=== PATIENT | male | born 1950 | race American Indian/Alaskan Native ===

== ENCOUNTER 2018-11-02 09:22 | Day surgery (SDC) | payer BC ==
[~2018-11-02 09:22] MED LIST: ceFAZolin 2 GM in NACL 0.9% 100 ML IV ONE
[2018-11-02] MEDS ORDERED: VERSED IV NR (11:00)
[2018-11-02] MEDS ORDERED: NEURONTIN PO NR (11:00)
[2018-11-02] MEDS ORDERED: LACTATED RINGERS 1,000 ML IV SCH (11:00)
[2018-11-02] MEDS ORDERED: ANCEF/STERILE WATER 2 GM/20 ML 2 GM/20 ML SYRINGE IV SCH (12:00)
[2018-11-02] MEDS ORDERED: ZEMURON IV ONE (13:59)
[2018-11-02] MEDS ORDERED: SUBLIMAZE ONE ×2 (13:59→16:37)
[2018-11-02] MEDS ORDERED: XYLOCAINE MPF 2% ONE (13:59)
[2018-11-02] MEDS ORDERED: DIPRIVAN 10 MG/ML IV ONE (14:00)
[2018-11-02] MEDS ORDERED: MARCAINE 0.5% INFILTRATI ONE ×2 (14:34→15:48)
[2018-11-02] MEDS ORDERED: XYLOCAINE 1% 20 mL ONE (14:34)
[2018-11-02] MEDS ORDERED: XYLOCAINE 1% 20 mL INFILTRATI ONE (15:48)
[2018-11-02] MEDS ORDERED: NACL 0.9% IR ONE (15:48)
[2018-11-02] MEDS ORDERED: DECADRON ONE (17:37)
[2018-11-02] MEDS ORDERED: ZOFRAN ONE (17:37)
--- NOTE | 2018-11-02 18:10 | Short Stay Summary ---
Short Stay Documentation Date of service: 11/02/18 - History Principal diagnosis: right inguinal hernia H&P: obtained from office - Allergies and Medications Current Medications: Allergies No Known Allergies Allergy (Verified 11/01/18 13:06) Home Medications Medication Instructions Recorded Confirmed Last Taken Type Multivit-Min/Folic/Vit K/Lycop 1 each PO DAILY 11/01/18 11/01/18 11/01/18 09:00 History [One-A-Day Men's 50 Plus Tablet] Triamter/Hctz 37.5-25 mg 1 tab PO QDAY 11/01/18 11/01/18 11/01/18 09:00 History [Maxzide-25] amLODIPine [Norvasc] 10 mg PO DAILY 11/01/18 11/01/18 11/01/18 09:00 History Active Medications Celecoxib (Celebrex) 200 mg PO PREOP NR Stop: 11/02/18 20:00 Last Admin: 11/02/18 13:05 Dose: 200 mg Documented by: Gabapentin (Neurontin) 300 mg PO PREOP NR Stop: 11/02/18 20:00 Last Admin: 11/02/18 13:05 Dose: 300 mg Documented by: Cefazolin Sodium (Ancef/Sterile Water 2 Gm/20 Ml) 2 gm in 20 mls @ 80 mls/hr IV PREOP STEVE Stop: 11/02/18 23:59 Lactated Ringer's (Lactated Ringers) 1,000 mls @ 75 mls/hr IV DIRECT STEVE Last Admin: 11/02/18 12:40 Dose: 75 mls/hr Documented by: Midazolam HCl (Versed) 2 mg IV PREOP NR Stop: 11/02/18 23:59 Last Admin: 11/02/18 13:06 Dose: 2 mg Documented by: - Brief post op/procedure progress note Date of procedure: 11/02/18 Pre-op diagnosis: right inguinal hernia Post-op diagnosis: same Procedure: robotic assisted right inguinal hernia repair with mesh Anesthesia: GETA, local Findings: Large amount of chronic scarring in the right groin, preperitoneal plane. Large direct and indirect hernia Surgeon: MADALYN LOREDO Treating Plant Pumper: ANGIE MCKEON Estimated blood loss: 50-100ml Pathology: none Condition: stable - Hospital course Hospital course: Pt observed in PACU and discharged to home in stable condition when criteria met - Disposition Condition at discharge: Good Disposition: DC-01 TO HOME OR SELFCARE Short Stay Discharge Plan Activity: other (no heavy lifting) Diet: regular Wound: open to air, per your surgeon's advice Additional Instructions: SEE PRINTED DISCHARGE INSTRUCTIONS Follow up with: BELINDA ROSALES MD [Primary Care Provider] - 7 Days MADALYN LOREDO DO [Staff Physician] - 14 Days Prescriptions: Ibuprofen [Motrin 800 MG tab] 800 mg PO Q8HR #30 tablet oxyCODONE /ACETAMINOPHEN [Percocet 5/325] 1 tab PO Q4HR PRN #20 tab PRN Reason: Pain , Severe (7-10)
[2018-11-02] MEDS ORDERED: TORADOL IV PRN (18:43)
[2018-11-02 19:56] VITALS: BP 114/66
--- NOTE | 2018-11-08 15:36 | Operative Report ---
PREOPERATIVE DIAGNOSIS: Right inguinal hernia. POSTOPERATIVE DIAGNOSIS: Right inguinal hernia. PROCEDURE: Robotic-assisted right inguinal hernia repair with mesh. ANESTHESIA: General endotracheal anesthesia, local. FINDINGS: Large amount of chronic scarring in the right groin and preperitoneal plane, large direct and indirect hernia. SURGEON: Malia Obrien DO DRESS FINISHER: Harjeet Ramos MD ESTIMATED BLOOD LOSS: 50-100 mL. PATHOLOGY: None. CONDITION: Stable to PACU. HISTORY OF PRESENT ILLNESS AND INDICATION: The patient is a 68-year-old male with a history of an open left inguinal hernia repair in the past, who presented to the surgery office with complaints of a bulge in his right groin. He was found to have an inguinal hernia that was reducible on physical exam. Repair was recommended and all risks, benefits and alternatives to surgery were discussed with the patient. The robotic, laparoscopic, and open approaches were discussed as well. All questions were answered and consent obtained. PROCEDURE IN DETAIL: The patient was identified in the preoperative area, taken back to the operating room, and placed on the operating table in supine position. After anesthesia was induced, a Johnson catheter was sterilely placed by the circulating nurse. The abdomen was then prepped and draped in the usual sterile fashion and timeout performed. Local anesthetic was infiltrated into all skin incision sites. A 12 mm incision was made above the umbilicus through which a Veress needle was inserted. The Veress needle position was confirmed using the saline drop test and the abdomen insufflated to 15 mmHg. Once this was done, the Veress needle was removed and a 12 mm balloon Optiview trocar was placed in this incision. Abdomen was inspected and there was no underlying injury to any of the abdominal contents. The patient was placed in Trendelenburg position and the right groin visualized. There was what appeared to be bowel and fat going into the inguinal canal. Two additional robotic trocars were then placed, one in the right upper abdomen and one in the left upper abdomen under direct visualization. The robot was then docked and the surgeon transferred to the console. A fenestrated bipolar grasper was placed in arm #1 and a monopolar scissors in arm #2. A preperitoneal flap was created about 6-7 cm from the inguinal canal using the scissors. This was taken from the ASIS to the medial umbilical ligament. The intraabdominal contents of the hernia were then carefully reduced and this appeared to be a large amount of epiploic fat. The preperitoneal plane was then created using a combination of blunt dissection and electrocautery in avascular plane and hemostasis was achieved along the way. First, a lateral plane was developed using blunt dissection. Then, the medial plane was dissected using a combination of blunt dissection and electrocautery until the pubic tubercle was identified. Any fat overlying the pubic tubercle was dissected off using blunt dissection. Any vein overlying the pubic tubercle was ligated using the fenestrated bipolar. At this point, a large indirect hernia was seen. This was containing a large amount of lipoma, which was carefully reduced. The edge of the hernia sac was then identified and slowly and meticulously reduced and from the cord structures. There was a large amount of scarring and thick adhesions seen in this area which made the dissection very difficult. The hernia sac was reduced as much as possible as well as the contents of the hernia. Once the peritoneum was reduced, the pocket was checked for hemostasis. There was a small amount of chronic scar tissue at the medial aspect that was very adherent to the cord structures and could not be taken down safely. Once the pocket was checked for hemostasis, a medium sized Bard 3DMax right-sided mesh was introduced into the abdomen along with suture material. This was placed into the pocket and positioned over all defects. It was sutured medially to the pubic tubercle using interrupted 0 Vicryl suture. It was also affixed laterally to the anterior abdominal wall using 0 Vicryl suture. The bottom edge of the mesh was tucked underneath the peritoneum and seen to lay flat. An Angiocath was inserted into the pocket from the outside by the assistant clinical nurse manager and the peritoneum was reapproximated using 3-0 V-Loc interrupted suture. The large lipoma was then incorporated into this repair to help prevent flipping underneath the mesh. Once the pocket was closed and all peritoneal defects closed, there was no peritoneum seen exposed the bowel. The preperitoneal pocket was then evacuated of air by removal of the needle from the Angiocath. The abdomen was then slowly desufflated and the patient placed back in neutral position. All ports were removed under direct visualization and the abdomen completely desufflated. The 12 mm port fascia was closed with 0 Vicryl suture. The remainder of the incisions were infiltrated with local anesthetic and skin closed with 4-0 Monocryl subcuticular stitches and skin glue. More preperitoneal air was evacuated through the Angiocath and the Angiocath was removed. At the end of the case, all sponge, instrument, sharp counts were correct x 2. The patient was awoken from anesthesia. The Johnson catheter removed and he was taken to PACU in stable condition. The scrotum was palpated and both testicles were in normal anatomic position. JOB# [id number] NK/JEN
== END 2018-11-02 20:15 | disposition home or self-care (01) ==
LOC: OR 09:22
PROVIDERS: ATTEND Surgery
DX: K40.90 Unilateral inguinal hernia, without obstruction or gangrene, not specified as recurrent (principal); I10 Essential (primary) hypertension; Z79.899 Other long term (current) drug therapy; Z98.890 Other specified postprocedural states
CPT/HCPCS: 49650; C1781; J0690; J1100; J2250; J2405; J2704; J3010; J7120; S2900

== ENCOUNTER 2021-11-27 17:02 | Inpatient (IN) | payer BC, MEDICARE ==
[2021-11-27 19:06] LABS: Bilirubin,Urine NEG (Negative); Blood,Urine NEG (Negative); Color,Urine Yellow (Yellow); Protein,Urine <15 mg/dL mg/dL (Negative); Urobilinogen,Urine < 2.0 mg/dL (<2.0)
[2021-11-27 19:29] LABS: WBC,Urine < 1.0 /HPF (0.0-6.0)
--- NOTE | 2021-11-28 06:42 | Emergency Department Report ---
ED General Adult HPI - General Chief complaint: Urogenital-Male Stated complaint: CANT URINATE Time Seen by Provider: 11/28/21 06:17 Source: patient Mode of arrival: Ambulatory Limitations: No Limitations - History of Present Illness Initial comments: patient presents with complaints of frequent urination with urgency x 1 week. Denies painful urination, abd pain, back pain. States he was given some medication for his R shoulder pain 1 week ago (*possibly a steroid?). - Related Data Home Medications Medication Instructions Recorded Confirmed Last Taken Multivit-Min/Folic/Vit K/Lycop 1 each PO DAILY 11/01/18 11/01/18 11/01/18 09:00 [One-A-Day Men's 50 Plus Tablet] Triamter/Hctz 37.5-25 mg 1 tab PO QDAY 11/01/18 11/01/18 11/01/18 09:00 [Maxzide-25] amLODIPine 10 mg PO DAILY 11/01/18 11/01/18 11/01/18 09:00 Previous Rx's Medication Instructions Recorded Last Taken Type Ibuprofen [Motrin 800 MG tab] 800 mg PO Q8HR #30 tablet 11/02/18 Unknown Rx oxyCODONE /ACETAMINOPHEN [Percocet 1 tab PO Q4HR PRN #20 tab 11/02/18 Unknown Rx 5/325] Allergies Allergy/AdvReac Type Severity Reaction Status Date / Time No Known Allergies Allergy Verified 11/01/18 13:06 ED Review of Systems ROS: Stated complaint: CANT URINATE Other details as noted in HPI Comment: All other systems reviewed and negative Constitutional: denies: chills, fever ED Past Medical Hx - Past Medical History Hx Hypertension: Yes (2010) Hx HIV: (NOT TESTED) - Social History Smoking Status: Never Smoker - Medications Home Medications: Home Medications Medication Instructions Recorded Confirmed Last Taken Type Multivit-Min/Folic/Vit K/Lycop 1 each PO DAILY 11/01/18 11/01/18 11/01/18 09:00 History [One-A-Day Men's 50 Plus Tablet] Triamter/Hctz 37.5-25 mg 1 tab PO QDAY 11/01/18 11/01/18 11/01/18 09:00 History [Maxzide-25] amLODIPine 10 mg PO DAILY 11/01/18 11/01/18 11/01/18 09:00 History Ibuprofen [Motrin 800 MG tab] 800 mg PO Q8HR #30 tablet 11/02/18 Unknown Rx oxyCODONE /ACETAMINOPHEN [Percocet 1 tab PO Q4HR PRN #20 tab 11/02/18 Unknown Rx 5/325] ED Physical Exam - General Limitations: No Limitations General appearance: alert, in no apparent distress - Head Head exam: Present: atraumatic, normocephalic - Eye Eye exam: Present: PERRL, EOMI - ENT ENT exam: Present: mucous membranes moist, other (airway patent) - Neck Neck exam: Present: other (supple; no JVD) - Respiratory Respiratory exam: Present: other (good air entry, nml I:E, CTAB, no use of ASTRID) - Cardiovascular Cardiovascular Exam: Present: regular rate. Absent: rubs, gallop - GI/Abdominal GI/Abdominal exam: Present: soft, normal bowel sounds. Absent: distended, tenderness - Extremities Exam Extremities exam: Present: full ROM. Absent: tenderness - Back Exam Back exam: Present: full ROM. Absent: CVA tenderness (R), CVA tenderness (L) - Neurological Exam Neurological exam: Present: alert, oriented X3, CN II-XII intact. Absent: motor sensory deficit - Skin Skin exam: Present: warm, normal color ED Course Vital Signs 11/27/21 11/28/21 11/28/21 17:20 04:35 04:46 Temperature 98.8 F 97.8 F Pulse Rate 98 H 70 84 Respiratory 18 15 17 Rate Blood Pressure 139/97 161/87 Blood Pressure 161/87 [Left] O2 Sat by Pulse 94 95 98 Oximetry 11/28/21 11/28/21 11/28/21 05:00 05:16 05:46 Temperature Pulse Rate 72 79 70 Respiratory 12 15 12 Rate Blood Pressure 154/100 152/97 145/92 Blood Pressure [Left] O2 Sat by Pulse 95 95 97 Oximetry 11/28/21 11/28/21 11/28/21 06:00 06:30 07:01 Temperature Pulse Rate 70 66 75 Respiratory 15 16 13 Rate Blood Pressure 137/89 145/84 145/92 Blood Pressure [Left] O2 Sat by Pulse 94 97 96 Oximetry ED Medical Decision Making - Lab Data Result diagrams: 11/28/21 06:48 11/28/21 06:48 Laboratory Tests 11/27/21 11/28/21 11/28/21 17:27 06:48 06:48 WBC 8.0 RBC 4.80 Hgb 15.0 Hct 45.0 MCV 94 MCH 31 MCHC 33 RDW 13.2 Plt Count 266 Lymph % (Auto) 19.6 [place] % (Auto) 9.0 H Eos % (Auto) 2.0 Baso % (Auto) 0.5 Lymph # (Auto) 1.6 [place] # (Auto) 0.7 Eos # (Auto) 0.2 Baso # (Auto) 0.0 Seg Neutrophils % 68.9 Seg Neutrophils # 5.5 Sodium 135 L Potassium 4.0 Chloride 91.4 L Carbon Dioxide 28 Anion Gap 20 BUN 23 H Creatinine 1.0 Estimated GFR > 60 BUN/Creatinine Ratio 23 Glucose 728 H* Osmolality Calcium 9.9 Total Bilirubin 1.10 AST 15 ALT 19 Alkaline Phosphatase 119 Troponin T < 0.010 Total Protein 8.1 Albumin 4.6 Albumin/Globulin Ratio 1.3 Urine Color Yellow Urine Turbidity Clear Urine pH 7.0 Ur Specific [place] 1.023 Urine Protein <15 mg/dl Urine Glucose (UA) >=500 Urine Ketones Neg Urine Blood Neg Urine Nitrite Neg Urine Bilirubin Neg Urine Urobilinogen < 2.0 Ur Leukocyte Esterase Neg Urine WBC (Auto) < 1.0 Urine RBC (Auto) 1.0 11/28/21 08:50 WBC RBC Hgb Hct MCV MCH MCHC RDW Plt Count Lymph % (Auto) [place] % (Auto) Eos % (Auto) Baso % (Auto) Lymph # (Auto) [place] # (Auto) Eos # (Auto) Baso # (Auto) Seg Neutrophils % Seg Neutrophils # Sodium Potassium Chloride Carbon Dioxide Anion Gap BUN Creatinine Estimated GFR BUN/Creatinine Ratio Glucose Osmolality 336 Calcium Total Bilirubin AST ALT Alkaline Phosphatase Troponin T Total Protein Albumin Albumin/Globulin Ratio Urine Color Urine Turbidity Urine pH Ur Specific [place] Urine Protein Urine Glucose (UA) Urine Ketones Urine Blood Urine Nitrite Urine Bilirubin Urine Urobilinogen Ur Leukocyte Esterase Urine WBC (Auto) Urine RBC (Auto) HCO3 28; AG 15; Osmolality 336; likely in HHNKS and not DKA ABG still not done by RT after 5 hours CXR: no acute cardiopulmonary process EKG: HR 66, SR, nml [place], narrow QRS, no significant ST changes in contiguous leads - Medical Decision Making Diff dz: likely debut of previously undiagnosed DM2 in the form of HHNKS. Pneumonia, UTI ruled out as triggers. ACS unlikely. Received insulin 10 units IV x 1, then gtt per protocol, NS 1L bolus IV x 2, then gtt @ 150 ml/hr Critical Care Time: Yes Critical care time in (mins) excluding proc time.: 40 Critical care attestation.: If time is entered above; I have spent that time in minutes in the direct care of this critically ill patient, excluding procedure time. ED Disposition Clinical Impression: Hyperosmolar hyperglycemic state (HHS) Disposition: ADMITTED INPATIENT Is pt being admited?: Yes Does the pt Need Aspirin: No Condition: Stable Instructions: Diabetes Mellitus Type 2 in Adults (ED) Time of Disposition: 10:30 (Patient admitted to Dr. Rafi Mejias. Sign out was given by me to the admitting physician. )
[2021-11-28 07:04] LABS: Basophils % (Auto) 0.5 % (0.0-1.8); Eosinophils # (Auto) 0.2 K/mm3 (0.0-0.4); Lymphocytes # (Auto) 1.6 K/mm3 (1.2-5.4); Lymphocytes % (Auto) 19.6 % (13.4-35.0); Mean Corpuscular HGB Conc 33 % (32-34); Mean Corpuscular Volume 94 fl (84-94); Monocytes # (Auto) 0.7 K/mm3 (0.0-0.8); Platelet Count 266 K/mm3 (140-440); Red Cell Distribution Width 13.2 % (13.2-15.2)
--- NOTE | 2021-11-28 07:31 | XRay Report ---
CHEST 1 VIEW INDICATION / CLINICAL INFORMATION: Hyperglycemia. COMPARISON: None available. FINDINGS: SUPPORT DEVICES: None. HEART / MEDIASTINUM: Heart size is within normal limits. Mediastinal contour demonstrates no signific ant abnormality. Mild ectasia of the thoracic aorta. LUNGS / PLEURA: No significant pulmonary abnormality. BONES: No significant osseous abnormality. ADDITIONAL FINDINGS: No significant additional findings. IMPRESSION: 1. No active cardiopulmonary disease. Signer Name: Emiliano Good II, MD Signed: 11/28/2021 7:27 AM Workstation Name: [id number]
[2021-11-28 08:29] LABS: Alanine Aminotransferase 19 units/L (7-56); Albumin 4.6 g/dL (3.9-5); BUN/Creatinine Ratio 23; Blood Urea Nitrogen 23 mg/dL (9-20); Calcium 9.9 mg/dL (8.4-10.2); Hemolysis Index 31
[2021-11-28] MEDS ORDERED: INSULIN REGULAR, HUMAN 100 UNITS/1 ML IV STA (08:42)
[2021-11-28] MEDS ORDERED: SODIUM CHLORIDE 0.9% 1000 ML 1,000 ML IV ONE ×3 (08:43→10:50)
[2021-11-28 11:00] LABS: ABG Base Excess 3.3 mmol/L (-2.0-3.0); ABG HCO3 28.1 mmol/L (20.0-26.0); ABG Methemoglobin 0.3 % (0.0-1.5); ABG Oxygen Saturation 95.3 % (95.0-99.0); ABG PCO2 43.4 mm Hg; ABG PH 7.43 pH Units (7.350-7.450); ABG PO2 67.9 mm Hg (80.0-90.0)
--- NOTE | 2021-11-28 11:24 | History and Physical Report ---
History of Present Illness Date of examination: 11/28/21 History of present illness: HPI: 71-year-old male with past medical history of hypertension presenting to our facility with complaint of weakness/fatigue and urinary frequency. Patient states that onset of fatigue has been ongoing for the last 2 to 3 weeks. Uri nary frequency was new complaint for the last 1 to 2 days. Given his lack of energy he decided to come to the emergency department. Patient denied any headache, chest pain, nausea, vomiting, diarrhea, constipation, chest pain, shortness of breath, abdominal pain, dysuria, discharge from his penis. 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 PCP-has a primary care physician through [facility] Medications and Allergies Allergies Allergy/AdvReac Type Severity Reaction Status Date / Time No Known Allergies Allergy Verified 11/01/18 13:06 Home Medications Medication Instructions Recorded Confirmed Last Taken Type Multivit-Min/Folic/Vit K/Lycop 1 each PO DAILY 11/01/18 11/01/18 11/01/18 09:00 History [One-A-Day Men's 50 Plus Tablet] Triamter/Hctz 37.5-25 mg 1 tab PO QDAY 11/01/18 11/01/18 11/01/18 09:00 History [Maxzide-25] amLODIPine 10 mg PO DAILY 11/01/18 11/01/18 11/01/18 09:00 History Ibuprofen [Motrin 800 MG tab] 800 mg PO Q8HR #30 tablet 11/02/18 Unknown Rx oxyCODONE /ACETAMINOPHEN [Percocet 1 tab PO Q4HR PRN #20 tab 11/02/18 Unknown Rx 5/325] Active Meds: Active Medications Insulin Human Regular 100 (units/ Sodium Chloride) 100 mls @ 1 mls/hr IV TITR STEVE; Protocol Sodium Chloride (Nacl 0.9% 1000 Ml) 1,000 mls @ 999 mls/hr IV BOLUS ONE Stop: 11/28/21 11:48 Sodium Chloride (Nacl 0.9% 1000 Ml) 1,000 mls @ 150 mls/hr IV ONCE ONE Stop: 11/28/21 17:29 Review of Systems All systems: negative (Except for stated in HPI) Exam - Physical Exam Narrative exam: Physical Exam: VITAL SIGNS: Reviewed. GENERAL: The patient appears normally developed, Vital signs as documented. HEAD: No signs of head trauma. EYES: Pupils are equal. Extraocular motions intact. EARS: Hearing grossly intact. MOUTH: Oropharynx is normal. NECK: No adenopathy, no JVD. CHEST: Chest with clear breath sounds bilaterally. No wheezes, rales, or r honchi. CARDIAC: Regular rate and rhythm. S1 and S2, without murmurs, gallops, or rubs. VASCULAR: No Edema. Peripheral pulses normal and equal in all extremities. ABDOMEN: Soft, non tender and non distended. No rebound or guarding, and no masses palpated. Bowel Sounds normal. MUSCULOSKELETAL: Good range of motion of all major joints. Extremities without clubbing, cyanosis or edema. NEUROLOGIC EXAM: Alert and oriented x 4. no focal sensory or strength deficits. PSYCHIATRIC: Mood normal. SKIN: detail exam as documented in skin assessment - Constitutional Vitals: Temp Pulse Resp BP Pulse Ox 97.8 F 75 13 145/92 96 11/28/21 04:35 11/28/21 07:01 11/28/21 07:01 11/28/21 07:01 11/28/21 07:01 HEART Score - HEART Score Troponin: Troponin T < 0.010 ng/mL (0.00-0.029) 11/28/21 06:48 Results - Labs CBC & Chem 7: 11/28/21 06:48 11/28/21 06:48 Labs: Laboratory Last Values WBC 8.0 K/mm3 (4.5-11.0) 11/28/21 06:48 RBC 4.80 M/mm3 (3.65-5.03) 11/28/21 06:48 Hgb 15.0 gm/dl (11.8-15.2) 11/28/21 06:48 Hct 45.0 % (35.5-45.6) 11/28/21 06:48 MCV 94 fl (84-94) 11/28/21 06:48 MCH 31 pg (28-32) 11/28/21 06:48 MCHC 33 % (32-34) 11/28/21 06:48 RDW 13.2 % (13.2-15.2) 11/28/21 06:48 Plt Count 266 K/mm3 (140-440) 11/28/21 06:48 Lymph % (Auto) 19.6 % (13.4-35.0) 11/28/21 06:48 [place] % (Auto) 9.0 % (0.0-7.3) H 11/28/21 06:48 Eos % (Auto) 2.0 % (0.0-4.3) 11/28/21 06:48 Baso % (Auto) 0.5 % (0.0-1.8) 11/28/21 06:48 Lymph # (Auto) 1.6 K/mm3 (1.2-5.4) 11/28/21 06:48 [place] # (Auto) 0.7 K/mm3 (0.0-0.8) 11/28/21 06:48 Eos # (Auto) 0.2 K/mm3 (0.0-0.4) 11/28/21 06:48 Baso # (Auto) 0.0 K/mm3 (0.0-0.1) 11/28/21 06:48 Seg Neutrophils % 68.9 % (40.0-70.0) 11/28/21 06:48 Seg Neutrophils # 5.5 K/mm3 (1.8-7.7) 11/28/21 06:48 ABG pH 7.430 pH Units (7.350-7.450) 11/28/21 10:50 ABG pCO2 43.4 mm Hg 11/28/21 10:50 ABG pO2 67.9 mm Hg (80.0-90.0) L 11/28/21 10:50 ABG HCO3 28.1 mmol/L (20.0-26.0) H 11/28/21 10:50 ABG O2 Saturation 95.3 % (95.0-99.0) 11/28/21 10:50 ABG O2 Content 20.1 (0.0-44) 11/28/21 10:50 ABG Base Excess 3.3 mmol/L (-2.0-3.0) H 11/28/21 10:50 ABG Hemoglobin 15.3 gm/dl (14.0-18.0) 11/28/21 10:50 ABG Carboxyhemoglobin 1.4 % (0.0-5.0) 11/28/21 10:50 ABG Methemoglobin 0.3 % (0.0-1.5) 11/28/21 10:50 Oxyhemoglobin 93.7 % (95.0-99.0) L 11/28/21 10:50 FiO2 21 % 11/28/21 10:50 Sodium 135 mmol/L (137-145) L 11/28/21 06:48 Potassium 4.0 mmol/L (3.6-5.0) 11/28/21 06:48 Chloride 91.4 mmol/L (98-107) L 11/28/21 06:48 Carbon Dioxide 28 mmol/L (22-30) 11/28/21 06:48 Anion Gap 20 mmol/L 11/28/21 06:48 BUN 23 mg/dL (9-20) H 11/28/21 06:48 Creatinine 1.0 mg/dL (0.8-1.3) 11/28/21 06:48 Estimated GFR > 60 ml/min 11/28/21 06:48 BUN/Creatinine Ratio 23 % 11/28/21 06:48 Glucose 728 mg/dL (75-100) H* 11/28/21 06:48 Osmolality 336 Mosm/kg 11/28/21 08:50 Calcium 9.9 mg/dL (8.4-10.2) 11/28/21 06:48 Total Bilirubin 1.10 mg/dL (0.1-1.2) 11/28/21 06:48 AST 15 units/L (5-40) 11/28/21 06:48 ALT 19 units/L (7-56) 11/28/21 06:48 Alkaline Phosphatase 119 units/L (35-129) 11/28/21 06:48 Troponin T < 0.010 ng/mL (0.00-0.029) 11/28/21 06:48 Total Protein 8.1 g/dL (6.3-8.2) 11/28/21 06:48 Albumin 4.6 g/dL (3.9-5) 11/28/21 06:48 Albumin/Globulin Ratio 1.3 % 11/28/21 06:48 Urine Color Yellow (Yellow) 11/27/21 17:27 Urine Turbidity Clear (Clear) 06/17/22 17:27 Urine pH 7.0 (5.0-7.0) 11/27/21 Ur Specific [place] 1.023 (1.003-1.030) 11/27/21 Urine Protein <15 mg/dl mg/dL (Negative) 11/27/21 Urine Glucose (UA) >=500 mg/dL (Negative) 11/27/21 Urine Ketones Neg mg/dL (Negative) 11/27/21 Urine Blood Neg (Negative) 11/27/21: Urine Nitrite Neg (Negative) 11/27/21: Urine Bilirubin Neg (Negative) 11/27/21 Urine Urobilinogen < 2.0 mg/dL (<2.0) 11/27/21 Ur Leukocyte Esterase Neg (Negative) 11/27/21 Urine WBC (Auto) < 1.0 /HPF (0.0-6.0) 11/27/21 Urine RBC (Auto) 1.0 /HPF (0.0-6.0) 11/27/21 Assessment and Plan Assessment and plan: Assessment and Plan: #Hyperosmolar hyperglycemic syndrome -Newly diagnosed diabetic -Blood sugar 729 on admission, serum osmolarity 336 Appears to be euvolemic on exam, NS @ 50 cc/hr for now Insulin drip initiated, once blood sugar < 250, can transition to subq insulin #Type 2 Diabetes with Hyperglycemia -Patient did not know he was diabetic - hemoglobin A1c, lipid panel ordered - home regimen: Not on any diabetic medication - current regimen: insulin gtt - blood glucose goal 140-180 while inpatient - continue to monitor #Essential hypertension Home medications amlodipine, triamterene/HCTZ Added lisinopril 5 mg p.o. daily for renal protection given diabetic Labetalol 10 mg IV every 4 hours as needed systolic blood pressure greater than 160 #Preventative health care - preventative health counseling regarding management of chronic medical conditions and overall effect of chronic medical conditions on overall health. Encourage patient to follow up closely with with OP providers +30 minutes. The high probability of a clinically significant, sudden or life threatening deterioration of the [Endo] system(s) required my full and direct attention, intervention and personal management. The aggregate critical care time was [60] minutes. This time is in addition to time spent performing reported procedures but includes the following: [x] Data Review and interpretation [x] Patient assessment and monitoring of vital signs [x] Documentation [x] Medication orders and management
[2021-11-28] MEDS ORDERED: oxyCODONE /ACETAMINOPHEN 5-325MG TAB PO PRN (11:25)
[2021-11-28] MEDS ORDERED: ACETAMINOPHEN 325 MG TAB PO PRN (11:25)
[2021-11-28] MEDS ORDERED: LISINOPRIL 5 MG TAB PO ONE (11:34)
--- NOTE | 2021-11-28 11:35 | Electrocardiograph Report ---
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
[2021-11-28 11:55] LABS: BUN/Creatinine Ratio 20; Blood Urea Nitrogen 22 mg/dL (9-20); Calcium 9.7 mg/dL (8.4-10.2); Hemolysis Index 7
[2021-11-28] MEDS ORDERED: SODIUM CHLORIDE 0.9% 500 ML 500 ML IV SCH (12:00)
[2021-11-28] MEDS: amLODIPine 10 MG TAB PO SCH (14:30)
[2021-11-28] MEDS: INSULIN REGULAR, HUMAN 100 UNITS in SODIUM CHLORIDE 0.9% 99 ML IV SCH (14:30)
[2021-11-28] MEDS: TRIAMTER/HCTZ 37.5-25 MG TAB PO SCH (14:52)
[2021-11-28 17:40] LABS: BUN/Creatinine Ratio 20; Blood Urea Nitrogen 20 mg/dL (9-20); Calcium 9.6 mg/dL (8.4-10.2); Hemolysis Index 25
[2021-11-28 17:52] LABS: Chol/HDL Ratio 3.75 %
[2021-11-28 20:02] LABS: BUN/Creatinine Ratio 21; Blood Urea Nitrogen 21 mg/dL (9-20); Calcium 9.7 mg/dL (8.4-10.2); Hemolysis Index 15
[2021-11-28] MEDS: D5W/0.45% NACL/KCL 20 MEQ 20 MEQ/1,000 ML BAG IV SCH (21:41)
[2021-11-28 22:11] LABS: BUN/Creatinine Ratio 19; Blood Urea Nitrogen 21 mg/dL (9-20); Calcium 9.9 mg/dL (8.4-10.2); Hemolysis Index 15
[2021-11-29] MEDS: INSULIN REGULAR, HUMAN 100 UNITS in SODIUM CHLORIDE 0.9% 99 ML IV SCH (04:49)
[2021-11-29] MEDS: D5W/0.45% NACL/KCL 20 MEQ 20 MEQ/1,000 ML BAG IV SCH (05:05)
[2021-11-29 05:24] LABS: BUN/Creatinine Ratio 22; Blood Urea Nitrogen 22 mg/dL (9-20); Calcium 9.3 mg/dL (8.4-10.2); Hemolysis Index 6
[2021-11-29] MEDS ORDERED: DEXTROSE 50% IN WATER (25GM) 50 ML SYRINGE IV PRN (08:06)
[2021-11-29] MEDS ORDERED: INSULIN GLARGINE 100 UNITS/ML SUB-Q SCH (08:07)
[2021-11-29] MEDS: TRIAMTER/HCTZ 37.5-25 MG TAB PO SCH (10:38)
[2021-11-29] MEDS: amLODIPine 10 MG TAB PO SCH (10:38)
[2021-11-29] MEDS ORDERED: INSULIN LISPRO 100 UNIT/ML SUB-Q SCH (11:30)
--- NOTE | 2021-11-29 12:12 | Discharge Summary ---
<ZENAIDA BURROUGHS - Last Filed: 11/29/21 12:19> Providers - Providers Date of Admission: 11/28/21 11:25 Date of discharge: 11/29/21 Attending physician: BRIAN DHILLON MD 11/28/21 11:21 Consult to Physician [CONS] Routine Comment: Consulting Provider: SHELBY VASQUEZ Physician Instructions: Reason For Exam: HHS on insulin gtt 11/28/21 11:25 Consult to Dietitian/Nutrition [CONS] Routine Physician Instructions: diabetic education Reason For Exam: Reason for Consult: Diet education Hospitalization Condition: Stable Hospital course: This is a 71-year-old male with hypertension who presented to with complaints of weakness/fatigue and urinary frequency. Work- up in the emergency included lab work which showed blood glucose level of 728,, serum osmolality 336 and patient was admitted to the hospitalist service with HHS and initiated on DKA protocol and admitted to the ICU with consult to [facility]. This morning patient's anion gap is closed and has been transitioned to long- acting insulin, sliding scale insulin and consistent carbohydrate diet. Patient has been tolerating consistent carbohydrate diet and will be discharged today. Patient will continue maxzide and will start amlodipine for blood pressure control. Patient will be discharged with insulin vials and glucose monitoring supplies. Hemoglobin A1c 11. Patient also had hypokalemia today which was repleted with p.o. potassium. Patient will need to follow-up with primary care physician within 1 to 2 weeks of discharge. 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 Assessment and plan: Cardiac: h/o HTN -Lipid panel triglycerides 245, cholesterol 199, LDL 117, HDL 53 -Continue amlodipine, Maxzide -Blood pressure monitoring per primary care physician instructions Endo: s/p HHS -s/p insulin gtt -Glucose monitoring per primary care physician instructions -Sliding scale insulin -Lantus 35 units daily -hemoglobin A1c 11.1 -Continue consistent carbohydrate diet -Follow-up with primary care physician and/or staining machine operator Disposition: HOME / SELF CARE / HOMELESS Final Discharge Diagnosis (Prints w/discharge instructions): s/p HHNS, Insulin dependent diabetes, hypertension Time spent for discharge: 60 Core Measure Documentation - Palliative Care Palliative Care/ Comfort Measures: Not Applicable - Core Measures Any of the following diagnoses?: none Exam - Constitutional Vitals: Temp Pulse Resp BP Pulse Ox 98 F 67 14 139/88 97 11/29/21 08:00 11/29/21 11:00 11/29/21 11:00 11/29/21 11:00 11/29/21 11:00 General appearance: Present: no acute distress, well-nourished - EENT Eyes: Present: PERRL, EOM intact ENT: hearing intact, clear oral mucosa, dentition normal - Neck Neck: Present: supple, normal ROM - Respiratory Respiratory effort: normal Respiratory: bilateral: CTA - Cardiovascular Rhythm: regular Heart Sounds: Present: S1 & S2. Absent: systolic murmur, diastolic murmur - Extremities Extremities: no ischemia, pulses intact, pulses symmetrical, No edema, normal temperature, normal color, Full ROM Peripheral Pulses: within normal limits - Abdominal General gastrointestinal: Present: soft, non-tender, non-distended, normal bowel sounds - Integumentary Integumentary: Present: clear, warm, dry - Musculoskeletal Musculoskeletal: strength equal bilaterally - Psychiatric Psychiatric: appropriate mood/affect, cooperative - Neurologic Neurologic: CNII-XII intact, no focal deficits, moves all extremities - Allied Health Allied health notes reviewed: nursing Plan Activity: advance as tolerated Diet: diabetic Special Instructions: record daily BP diary, record blood sugar diary Additional Instructions: This is a 71-year-old male with hypertension who prese nted to with complaints of weakness/fatigue and urinary frequency. Work-up in the emergency included lab work which showed blood glucose level of 728,, serum osmolality 336 and patient was admitted to the hospitalist service with [facility] and initiated on DKA protocol and admitted to the ICU with consult to [facility]. This morning patient's anion gap is closed and has been transitioned to long-acting insulin, sliding scale insulin and consistent carbohydrate diet. Patient has been tolerating consistent carbohydrate diet and will be discharged today. Patient will continue maxzide and will start amlodipine for blood pressure control. Patient will be discharged with insulin vials and glucose monitoring supplies. Hemoglobin A1c 11. Patient also had hypokalemia today which was repleted with p.o. potassium. Patient will need to follow-up with primary care physician within 1 to 2 weeks of discharge. 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 Follow up with: ANDREA BARRIOS [Other] - 3-5 Days Forms: Work/School Excuse Out Patient Prescriptions: Insulin Glargine [Lantus VIAL] 35 units SUB-Q QAMDIAB #1 vial Other Discharge Orders: Glucometer (Amb) Location: None Selected Glucometer supplies[Amb] Location: None Selected <BRIAN DHILLON - Last Filed: 12/02/21 14:51> Providers - Providers Date of Admission: 11/28/21 11:25 Attending physician: BRIAN DHILLON MD 11/28/21 11:21 Consult to Physician [CONS] Routine Comment: Consulting Provider: SHELBY VASQUEZ Physician Instructions: Reason For Exam: HHS on insulin gtt 11/28/21 11:25 Consult to Dietitian/Nutrition [CONS] Routine Physician Instructions: diabetic education Reason For Exam: Reason for Consult: Diet education Hospitalization Reason for admission: elevated blood sugar, polyuria Hospital course: I saw and evaluated the patient. Discussed with the nurse practitioner and agree with their findings and plan as documented in this note. Exam - Constitutional Vitals: Temp Pulse Resp BP Pulse Ox 98.5 F 72 17 130/88 98 11/29/21 12:00 11/29/21 13:30 11/29/21 13:30 11/29/21 13:30 11/29/21 13:30
[2021-11-29 14:38] VITALS: BP 130/88
== END 2021-11-29 14:30 | disposition home or self-care (01) | DRG 639 ==
LOC: ED 17:02 → CC1 11-28 11:25
PROVIDERS: ADMIT Internal Medicine; ATTEND Internal Medicine
DX: E11.00 Type 2 diabetes mellitus with hyperosmolarity without nonketotic hyperglycemic-hyperosmolar coma (NKHHC) (principal); I10 Essential (primary) hypertension; E87.6 Hypokalemia
CPT/HCPCS: 36415; 36600; 71045; 80048; 80053; 80061; 81001; 82803; 82962; 83036; 83735; 83930; 84100; 84484; 85025; 93005; G0378; J3480; J3490; Q9967; J1815; J7030